=== PATIENT | female | born 1960 | race Native Hawaiian/Other Pacific Islander ===

== ENCOUNTER 2016-06-28 08:04 | Outpatient (CLI) | payer OTHER ==
[~2016-06-28 08:04] MED LIST: ALPR1TAB61 PO; HYDR-2748 PO; HYDR10TA47 PO; HYDR200T3 PO; LISI5TAB10 PO; MOBIC7.5 M1 PO; MUPI2OIN2 TOP; NEURONTIN 100M100 MG PO; TIZA4TAB5 PO; TRAZ50TA36 PO; TRIM800T12 PO
== END 2016-06-28 18:58 | disposition home or self-care (01) ==
LOC: RAD 08:04
DX: R68.82 Decreased libido (principal); M54.5 Low back pain; I10 Essential (primary) hypertension

== ENCOUNTER 2016-09-18 09:25 | Outpatient (CLI) | payer OTHER ==
[2016-09-18 09:43] LABS: PLATELET COUNT 260 K/uL (152-353)
[2016-09-18 10:32] LABS: POTASSIUM 4.6 mmol/L (3.6-5.2)
== END 2016-09-18 19:20 | disposition home or self-care (01) ==
LOC: LABW 09:25
PROVIDERS: Family Medicine
DX: R68.82 Decreased libido (principal); J44.9 Chronic obstructive pulmonary disease, unspecified; M54.5 Low back pain; F41.8 Other specified anxiety disorders; I10 Essential (primary) hypertension; E55.9 Vitamin D deficiency, unspecified
CPT/HCPCS: 36415; 80053; 80061; 81000; 82306; 82672; 84402; 84403; 84439; 84443; 85027

== ENCOUNTER 2016-09-21 08:16 | Outpatient (CLI) | payer OTHER | END 2016-09-21 10:00 | disposition home or self-care (01) | LOC: RAD 08:16 | DX: M81.0 Age-related osteoporosis without current pathological fracture (principal); M54.89 Other dorsalgia ==

== ENCOUNTER 2016-10-11 08:19 | Outpatient (CLI) | payer OTHER ==
[~2016-10-11] VITALS: Ht 157.5 cm; Wt 45.4 kg
[2016-10-11 10:30] VITALS: BP 98/62; TEMP 97.8
== END 2016-10-11 10:30 | disposition home or self-care (01) ==
LOC: INF 08:19
DX: M81.0 Age-related osteoporosis without current pathological fracture (principal)
CPT/HCPCS: 36415; 82310; 96372; J0897

== ENCOUNTER 2016-11-21 08:19 | Outpatient (CLI) | payer OTHER | END 2016-11-21 19:35 | disposition home or self-care (01) | LOC: RAD 08:19 | DX: M25.552 Pain in left hip (principal) ==

== ENCOUNTER 2017-01-02 08:18 | Outpatient (CLI) | payer OTHER | END 2017-01-02 09:45 | disposition home or self-care (01) | LOC: MRI 08:18 | DX: M25.552 Pain in left hip (principal); M81.0 Age-related osteoporosis without current pathological fracture; M85.88 Other specified disorders of bone density and structure, other site ==

== ENCOUNTER 2017-01-22 08:48 | Outpatient (CLI) | payer OTHER | END 2017-01-22 10:00 | disposition home or self-care (01) | LOC: US 08:48 | DX: N83.291 Other ovarian cyst, right side (principal); M25.552 Pain in left hip; M54.5 Low back pain; Z78.0 Asymptomatic menopausal state ==

== ENCOUNTER 2017-02-27 09:22 | Inpatient (IN) | payer OTHER ==
[~2017-02-27] VITALS: Ht 152.4 cm; Wt 45.9 kg
[2017-02-27 11:05] LABS: PLATELET COUNT 419 K/uL (152-353)
[2017-02-27 11:26] LABS: POTASSIUM 3.9 mmol/L (3.6-5.2); SODIUM 137 mmol/L (136-145)
[2017-02-27 12:25] VITALS: BP 117/68; TEMP 97; Ht 152.4 cm; Wt 45.9 kg
[2017-02-27 13:30] LABS: PARTIAL THROMBOPLASTIN TIME 23.2 SECONDS (24.5-33.6)
[2017-02-27 15:53] VITALS: BP 119/76; TEMP 98.9
[2017-02-27] MEDS ORDERED: OMEPRAZOLE20 M1 PO (16:54)
[2017-02-27] MEDS ORDERED: EXALGO8 MG PO (16:55)
[2017-02-27] MEDS ORDERED: AMBIEN5 MG PO (16:56)
[2017-02-27] MEDS ORDERED: NEURONTIN 100M100 MG PO (16:57)
[2017-02-27] MEDS ORDERED: LORADAMED10 MG PO (16:58)
[2017-02-27] MEDS ORDERED: GABA100C2 PO (16:58)
[2017-02-27 20:00] VITALS: BP 118/71; TEMP 98.3
[2017-02-28] VITALS: BP 103/62; TEMP 98.5
[2017-02-28 04:00] VITALS: BP 112/69; TEMP 98.3
[2017-02-28 05:54] LABS: POTASSIUM 3.2 mmol/L (3.6-5.2); SODIUM 142 mmol/L (136-145)
[2017-02-28 08:00] VITALS: BP 132/78; TEMP 98.5
[2017-02-28 12:00] VITALS: BP 123/63; TEMP 98
[2017-02-28 14:24] LABS: POTASSIUM 3.4 mmol/L (3.6-5.2); SODIUM 140 mmol/L (136-145)
[2017-02-28 16:00] VITALS: BP 113/65; TEMP 98.5
[2017-02-28 20:00] VITALS: BP 145/90; TEMP 98.4
[2017-03-01] VITALS: BP 107/70; TEMP 98.2
[2017-03-01 04:00] VITALS: BP 120/72; TEMP 98.3
[2017-03-01 08:00] VITALS: BP 127/76; TEMP 98
[2017-03-01 12:00] VITALS: BP 127/73; TEMP 97.9
[2017-03-01 15:04] LABS: POTASSIUM 3.2 mmol/L (3.6-5.2); SODIUM 140 mmol/L (136-145)
[2017-03-01 16:00] VITALS: BP 135/60; TEMP 98.2
[2017-03-01 20:00] VITALS: BP 126/65; TEMP 98.9
[2017-03-02] VITALS: BP 117/82; TEMP 98.4
[2017-03-02 04:00] VITALS: BP 140/84; TEMP 98.5
[2017-03-02 08:00] VITALS: BP 131/75; TEMP 98.3
== END 2017-03-02 10:35 | disposition home or self-care (01) | DRG 641 ==
LOC: MED/SURG 09:22
PROVIDERS: ADMIT Family Medicine
DX: E86.0 Dehydration (principal); R17 Unspecified jaundice; N39.0 Urinary tract infection, site not specified; B19.10 Unspecified viral hepatitis B without hepatic coma; R53.1 Weakness; B19.20 Unspecified viral hepatitis C without hepatic coma; B96.29 Other Escherichia coli [E. coli] as the cause of diseases classified elsewhere; F10.20 Alcohol dependence, uncomplicated; F11.90 Opioid use, unspecified, uncomplicated; F14.90 Cocaine use, unspecified, uncomplicated; R79.89 Other specified abnormal findings of blood chemistry; E88.09 Other disorders of plasma-protein metabolism, not elsewhere classified
CPT/HCPCS: 36415; 80053; 80074; 80307; 80320; 81000; 82140; 82150; 82272; 83690; 84443; 85027; 85610; 85730; 87015; 87040; 87045; 87077; 87086; 87088; 87186; 87205; 87324; 87328; 87329; 87449; 87522; 87899; G0479; J1170; J2405; J2550; J3490

== ENCOUNTER 2017-03-07 09:03 | Outpatient (CLI) | payer OTHER ==
[~2017-03-07 09:03] MED LIST changes: +AMBIEN5 MG PO; +EXALGO8 MG PO; +GABA100C2 PO; +LORADAMED10 MG PO; +OMEPRAZOLE20 M1 PO
== END 2017-03-07 19:10 | disposition home or self-care (01) ==
LOC: CT 09:03
DX: R10.84 Generalized abdominal pain (principal); B19.10 Unspecified viral hepatitis B without hepatic coma; R74.8 Abnormal levels of other serum enzymes; Z86.19 Personal history of other infectious and parasitic diseases; R11.2 Nausea with vomiting, unspecified
CPT/HCPCS: Q9963

== ENCOUNTER 2017-03-13 09:34 | Outpatient (CLI) | payer OTHER | END 2017-03-13 10:35 | disposition home or self-care (01) | LOC: US 09:34 | DX: R10.84 Generalized abdominal pain (principal); R79.89 Other specified abnormal findings of blood chemistry; K82.8 Other specified diseases of gallbladder ==

== ENCOUNTER 2017-04-26 08:11 | Outpatient (CLI) | payer OTHER ==
[~2017-04-26] VITALS: Ht 157.5 cm; Wt 45.4 kg
[2017-04-26 09:35] VITALS: BP 118/71; TEMP 98.2
== END 2017-04-26 09:35 | disposition home or self-care (01) ==
LOC: INF 08:11
DX: M81.0 Age-related osteoporosis without current pathological fracture (principal)
CPT/HCPCS: 36415; 82310; 96372; J0897

== ENCOUNTER 2017-07-25 08:01 | Outpatient (CLI) | payer OTHER | END 2017-07-25 18:11 | disposition home or self-care (01) | LOC: CT 08:01 | DX: R19.09 Other intra-abdominal and pelvic swelling, mass and lump (principal) | CPT/HCPCS: 36415; 82565; 84520; Q9963 ==

== ENCOUNTER 2017-09-07 12:14 | Outpatient (CLI) | payer OTHER | END 2017-09-07 22:15 | disposition home or self-care (01) | LOC: LABW 12:14 | DX: R19.09 Other intra-abdominal and pelvic swelling, mass and lump (principal); R97.0 Elevated carcinoembryonic antigen [CEA] | CPT/HCPCS: 36415; 82378; 86304 ==

== ENCOUNTER 2017-10-04 10:16 | Outpatient (CLI) | payer OTHER | END 2017-10-04 20:07 | disposition home or self-care (01) | LOC: RESP 10:16 | DX: Z01.810 Encounter for preprocedural cardiovascular examination (principal) | CPT/HCPCS: 93005 ==

== ENCOUNTER 2017-11-05 07:52 | Outpatient (CLI) | payer OTHER ==
[~2017-11-05] VITALS: Ht 157.5 cm; Wt 45.5 kg
== END 2017-11-05 19:40 | disposition home or self-care (01) ==
LOC: INF 07:52
DX: M81.0 Age-related osteoporosis without current pathological fracture (principal)
CPT/HCPCS: 36415; 82310; 96372; J0897

== ENCOUNTER 2018-06-18 08:10 | Outpatient (CLI) | payer OTHER ==
[~2018-06-18] VITALS: Ht 152.4 cm; Wt 49.9 kg
[2018-06-18 09:00] VITALS: BP 178/92; TEMP 98.2
== END 2018-06-18 09:40 | disposition home or self-care (01) ==
LOC: INF 08:10
DX: M81.0 Age-related osteoporosis without current pathological fracture (principal)
CPT/HCPCS: 36415; 82310; 96372; J0897

== ENCOUNTER 2018-08-21 12:08 | Outpatient (CLI) | payer OTHER | END 2018-08-21 23:46 | disposition home or self-care (01) | LOC: RAD 12:08 | DX: M25.552 Pain in left hip (principal) ==

== ENCOUNTER 2018-12-11 07:46 | Outpatient (CLI) | payer OTHER ==
[2018-12-11 08:11] LABS: PLATELET COUNT 245 K/uL (152-353)
[2018-12-11 08:38] LABS: POTASSIUM 4.6 mmol/L (3.6-5.2)
== END 2018-12-11 23:42 | disposition home or self-care (01) ==
LOC: LABW 07:46
PROVIDERS: Family Medicine
DX: I10 Essential (primary) hypertension (principal); I25.119 Atherosclerotic heart disease of native coronary artery with unspecified angina pectoris; G47.09 Other insomnia; K21.9 Gastro-esophageal reflux disease without esophagitis; J44.9 Chronic obstructive pulmonary disease, unspecified; E55.9 Vitamin D deficiency, unspecified
CPT/HCPCS: 36415; 80053; 80061; 81000; 82306; 83735; 84439; 84443; 85027

== ENCOUNTER 2018-12-26 08:14 | Outpatient (CLI) | payer OTHER ==
[~2018-12-26] VITALS: Ht 160 cm; Wt 49.9 kg
[2018-12-26 08:45] VITALS: BP 155/82; TEMP 98.1
== END 2018-12-26 09:35 | disposition home or self-care (01) ==
LOC: INF 08:14
DX: M81.0 Age-related osteoporosis without current pathological fracture (principal)
CPT/HCPCS: 36415; 82310; 96372; J0897

== ENCOUNTER 2019-05-02 09:10 | Outpatient (CLI) | payer OTHER | END 2019-05-02 22:39 | disposition home or self-care (01) | LOC: LABW 09:10 | DX: R05 Cough (principal); R68.89 Other general symptoms and signs; J20.9 Acute bronchitis, unspecified | CPT/HCPCS: 87502 ==

== ENCOUNTER 2019-09-30 10:47 | Outpatient (CLI) | payer OTHER ==
[~2019-09-30] VITALS: Ht 157.5 cm; Wt 56.7 kg
[2019-09-30 10:55] VITALS: BP 120/72; TEMP 98
== END 2019-09-30 12:20 | disposition home or self-care (01) ==
LOC: INF 10:47
DX: M81.0 Age-related osteoporosis without current pathological fracture (principal)
CPT/HCPCS: 36415; 82310; 96372; J0897

== ENCOUNTER 2019-11-14 10:27 | Outpatient (CLI) | payer OTHER | END 2019-11-14 18:59 | disposition home or self-care (01) | LOC: MRI 10:27 | DX: M54.16 Radiculopathy, lumbar region (principal) ==

== ENCOUNTER 2020-08-03 09:54 | Outpatient (CLI) | payer OTHER ==
[2020-08-03 10:29] LABS: PLATELET COUNT 302 K/uL (152-353)
[2020-08-03 10:36] LABS: POTASSIUM 3.6 mmol/L (3.6-5.2)
== END 2020-08-03 20:15 | disposition home or self-care (01) ==
LOC: LABW 09:54
PROVIDERS: ATTEND Internal Medicine Cardiovascular Disease
DX: Z79.899 Other long term (current) drug therapy (principal)
CPT/HCPCS: 36415; 80053; 80061; 85027

== ENCOUNTER 2020-09-15 13:15 | Outpatient (CLI) | payer OTHER ==
[~2020-09-15] VITALS: Ht 157.5 cm; Wt 48.1 kg
[2020-09-15 14:10] VITALS: BP 153/79; TEMP 98.5
== END 2020-09-15 21:15 | disposition home or self-care (01) ==
LOC: INF 13:15
PROVIDERS: ATTEND Internal Medicine Endocrinology, Diabetes & Metabolism
DX: M81.0 Age-related osteoporosis without current pathological fracture (principal)
CPT/HCPCS: 36415; 82310; 96372; J0897

== ENCOUNTER 2020-10-10 09:35 | Outpatient (CLI) | payer OTHER ==
[2020-10-10 10:16] LABS: PLATELET COUNT 248 K/uL (152-353)
[2020-10-10 10:34] LABS: POTASSIUM 3.6 mmol/L (3.6-5.2)
== END 2020-10-10 19:11 | disposition home or self-care (01) ==
LOC: LABW 09:35
PROVIDERS: ATTEND Nurse Practitioner Family
DX: Z01.812 Encounter for preprocedural laboratory examination (principal); Z79.899 Other long term (current) drug therapy
CPT/HCPCS: 36415; 80053; 80061; 82306; 83036; 84439; 84443; 84481; 85027

== ENCOUNTER 2020-11-09 10:06 | Outpatient (CLI) | payer OTHER | END 2020-11-09 19:14 | disposition home or self-care (01) | LOC: MAMMO 10:06 | PROVIDERS: ATTEND Nurse Practitioner Family | DX: Z12.31 Encounter for screening mammogram for malignant neoplasm of breast (principal) ==

== ENCOUNTER 2021-02-23 12:56 | Outpatient (CLI) | payer OTHER ==
[2021-02-23 14:03] LABS: PLATELET COUNT 243 K/uL (152-353)
[2021-02-23 14:16] LABS: POTASSIUM 4.4 mmol/L (3.6-5.2)
== END 2021-02-23 21:54 | disposition home or self-care (01) ==
LOC: LABW 12:56
PROVIDERS: ATTEND Internal Medicine Cardiovascular Disease
DX: I10 Essential (primary) hypertension (principal); E78.49 Other hyperlipidemia; E07.89 Other specified disorders of thyroid; R73.03 Prediabetes; E55.9 Vitamin D deficiency, unspecified; Z79.899 Other long term (current) drug therapy
CPT/HCPCS: 36415; 80053; 80061; 82306; 83036; 84443; 85027

== ENCOUNTER 2021-04-15 09:05 | Outpatient (CLI) | payer OTHER ==
[~2021-04-15] VITALS: Ht 157.5 cm; Wt 48.1 kg
== END 2021-04-15 18:57 | disposition home or self-care (01) ==
LOC: INF 09:05
PROVIDERS: ATTEND Internal Medicine Endocrinology, Diabetes & Metabolism
DX: M81.0 Age-related osteoporosis without current pathological fracture (principal)
CPT/HCPCS: 36415; 82310; 96372; J0897

== ENCOUNTER 2021-05-31 09:43 | Outpatient (CLI) | payer OTHER | END 2021-05-31 18:58 | disposition home or self-care (01) | LOC: RAD 09:43 | PROVIDERS: ATTEND Nurse Practitioner Family | DX: M54.12 Radiculopathy, cervical region (principal) ==

== ENCOUNTER 2022-08-02 12:31 | Outpatient (CLI) | payer OTHER | END 2022-08-02 19:27 | disposition home or self-care (01) | LOC: RAD 12:31 | PROVIDERS: ATTEND Physician Assistant | DX: M54.2 Cervicalgia (principal) ==

== ENCOUNTER 2022-08-16 08:46 | Outpatient (CLI) | payer OTHER | END 2022-08-16 19:02 | disposition home or self-care (01) | LOC: MRI 08:46 | PROVIDERS: ATTEND Physician Assistant | DX: M54.2 Cervicalgia (principal) ==